=== PATIENT | male | born 1985 | race Caucasian/White ===

== ENCOUNTER 2017-06-30 08:44 | Emergency (ER) | payer SELFPAY ==
[2017-06-30] MEDS ORDERED: NORMAL SALINE 1000 ML 1,000 ML IV ONE (08:53)
[2017-06-30] MEDS ORDERED: NORMAL SALINE 1000 ML 1,000 ML IV PRN (08:53)
--- NOTE | 2017-06-30 09:03 | ER Document Report ---
ED General - General Chief Complaint: Overdose Stated Complaint: POSSIBLE OVERDOSE Time Seen by Provider: 06/30/17 08:50 Mode of Arrival: Stretcher Information source: Patient, Emergency Med Personnel Notes: HPI-31 years old male with a history of heroin abuse, uses heroin to IV, was found in the bathroom unconscious this morning by his significant other. And EMS found him on the bed and brought him with semi-conscious. There is no head injury, no complete loss of consciousness. He states that he was shooting heroin in the bathroom. Through the IV. Is partially alert but drowsy oriented to place and person. Denies any focal weakness numbness tingling sensation. Denies any headache or neck pain. Denies any pain over the chest abdomen and upper limbs or lower limbs. REVIEW OF SYSTEMS: CONSTITUTIONAL : Denies fever, chills, or sweats. Denies recent illness. EENT: Denies eye, ear, throat, or mouth pain or symptoms. Denies nasal or sinus congestion or discharge. Denies throat, tongue, or mouth swelling or difficulty swallowing. CARDIOVASCULAR: Denies chest pain. Denies palpitations or racing or irregular heart beat. Denies ankle edema. RESPIRATORY: Denies cough, cold, or chest congestion. Denies shortness of breath, difficulty breathing, or wheezing. GASTROINTESTINAL: Denies abdominal pain or distention. Denies nausea, vomiting , or diarrhea. Denies blood in vomitus, stools, or per rectum. Denies black, tarry stools. Denies constipation. GENITOURINARY: Denies difficulty urinating, painful urination, burning, frequency, blood in urine, or discharge. MUSCULOSKELETAL: Denies back or neck pain or stiffness. Denies joint pain or swelling. SKIN: Denies rash, lesions or sores. HEMATOLOGIC : Denies easy bruising or bleeding. LYMPHATIC: Denies swollen, enlarged glands. NEUROLOGICAL: Denies confusion or altered mental status. Denies passing out or loss of consciousness. Denies dizziness or lightheadedness. Denies headache. Denies weakness or paralysis or loss of use of either side. Denies problems with gait or speech. Denies sensory loss, numbness, or tingling. Denies seizures. PSYCHIATRIC: Denies anxiety or stress. Denies depression, suicidal ideation, or homicidal ideation. ALL OTHER SYSTEMS REVIEWED AND NEGATIVE. Dictation was performed using Dragon voice recognition software PHYSICAL EXAMINATION: GENERAL: Drowsy but arousable alert oriented 2 for people / place HEAD: Atraumatic, normocephalic. EYES: Pupils equal round and reactive to light, extraocular movements intact, sclera anicteric, conjunctiva are normal. ENT: Nares patent, oropharynx clear without exudates. Moist mucous membranes. NECK: Normal range of motion, supple without lymphadenopathy LUNGS: Breath sounds clear to auscultation bilaterally and equal. No wheezes rales or rhonchi. HEART: Regular rate and rhythm without murmurs ABDOMEN: Soft, nontender, nondistended abdomen. No guarding, no rebound. No masses appreciated. Musculoskeletal: Normal range of motion, no pitting or edema. No cyanosis. NEUROLOGICAL: Cranial nerves grossly intact. Normal speech, normal gait. Normal sensory, motor exams PSYCH: Normal mood, normal affect. SKIN: Warm, Dry, normal turgor, no rashes or lesions noted.HPI- - HPI Onset: Last week Severity: Moderate Pain Level: 3 Past Medical History - Social History Smoking Status: Never Smoker Family History: Reviewed & Not Pertinent Physical Exam - Vital signs Vitals: Resp Pulse Ox 17 97 06/30/17 08:52 06/30/17 08:52 Course - Re-evaluation Re-evalutation: 06/30/17 10:50 Patient was reevaluated, he fully alert and oriented 3, which to go home. Offered to go through detox program but refused. Family members around. Willing to take him home. - Vital Signs Vital signs: Temp Pulse Resp BP Pulse Ox 17 114/74 97 06/30/17 12:01 06/30/17 12:01 06/30/17 12:01 - Laboratory Result Diagrams: 06/30/17 08:28 06/30/17 08:28 Laboratory results interpreted by me: 06/30/17 06/30/17 08:28 08:28 Lymphocytes % 46.3 H Potassium 3.3 L Glucose 124 H AST 89 H ALT 164 H Discharge - Discharge Clinical Impression: Heroin abuse Disposition: HOME, SELF-CARE Instructions: Narcotic Abuse ([facility])
[2017-06-30 09:04] LABS: ABSOLUTE EOSINOPHILS # (AUTO) 0.1 10^3/uL (0.0-0.6); ABSOLUTE LYMPHOCYTES (AUTO) 3.2 10^3/uL (0.5-4.7); ABSOLUTE MONOCYTES (AUTO) 0.6 10^3/uL (0.1-1.4); ABSOLUTE NEUT (AUTO) 2.9 10^3/uL (1.7-8.2); BASOPHILS % (AUTO) 0.6 % (0-2); EOSINOPHILS % (AUTO) 2.1 % (0-6); HEMATOCRIT 46.7 % (37.9-51.0); HEMOGLOBIN 15.8 g/dL (13.5-17.0); LYMPHOCYTES % (AUTO) 46.3 % (13-45); MEAN CORPUSCULAR HEMOGLOBIN 31.7 pg (27.0-33.4); MEAN CORPUSCULAR HGB CONC 33.9 g/dL (32.0-36.0); MEAN CORPUSCULAR VOLUME 94 fl (80-97); PLATELET COUNT 277 10^3/uL (150-450); RED BLOOD COUNT 4.99 10^6/uL (4.35-5.55); RED CELL DISTRIBUTION WIDTH 13.6 % (11.5-14.0); TOTAL CELLS COUNTED % (AUTO) 100 %
[2017-06-30 09:31] LABS: ALANINE AMINOTRANSFERASE 164 U/L (21-72); ALBUMIN 4.8 g/dL (3.5-5.0); ALKALINE PHOSPHATASE 78 U/L (38-126); ANION GAP 14 (5-19); ASPARTATE AMINO TRANSFERASE 89 U/L (17-59); BILIRUBIN,DIRECT 0.2 mg/dL (0.0-0.4); BILIRUBIN,TOTAL 0.2 mg/dL (0.2-1.3); BLOOD UREA NITROGEN 12 mg/dL (7-20); CALCIUM 9.4 mg/dL (8.4-10.2); CARBON DIOXIDE 28 mmol/L (22-30); CHLORIDE 103 mmol/L (98-107); GLUCOSE 124 mg/dL (75-110); POTASSIUM 3.3 mmol/L (3.6-5.0); SODIUM 144.6 mmol/L (137-145); TOTAL PROTEIN 7.7 g/dL (6.3-8.2)
[2017-06-30] MEDS ORDERED: POTASSIUM CHLORIDE 10 MEQ TABLET.SA PO ONE (10:45)
[2017-06-30 12:15] VITALS: BP 114/74
== END 2017-06-30 12:20 | disposition home or self-care (01) ==
LOC: ER 08:44
DX: F11.10 Opioid abuse, uncomplicated (principal); R40.0 Somnolence
CPT/HCPCS: 99284; 96360; 36415; 85025; 80053; J7030

== ENCOUNTER 2017-10-03 14:16 | Emergency (ER) | payer SELFPAY ==
[2017-10-03] MEDS ORDERED: PHENYLEPHRINE HCL INJ/PF 10 MG/1 ML SDV IV ONE (14:56)
[2017-10-03] MEDS ORDERED: LIDOCAINE 2% JELLY 30 ML TUBE TOP ONE (15:04)
--- NOTE | 2017-10-03 15:26 | ER Document Report ---
ED General - General Chief Complaint: Penile Problem Stated Complaint: PROLONGED ERECTION, PENILE PAIN Time Seen by Provider: 10/03/17 14:33 Mode of Arrival: Ambulatory Information source: Patient Notes: 32-year-old male presents emergency department with complaints of priapism. Patient states that onset was at 630 this morning. Patient states that he woke up at 630 noticed erection and went back to bed. He went back to sleep for 2 hours and woke up stating that he still had an erection. Patient states that over the last 2 hours has become painful and he decided to come to the emergency department for an evaluation. Patient denies any medical problems, medications, drug use. Patient denies taking any medications for erectile dysfunction. TRAVEL OUTSIDE OF THE [place] IN LAST 30 DAYS: No - HPI Onset: This morning Onset/Duration: Sudden Quality of pain: Fullness, Pressure Severity: Mild Pain Level: Denies Associated symptoms: None Exacerbated by: Denies Relieved by: Denies Similar symptoms previously: No Recently seen / treated by doctor: No - Related Data Allergies/Adverse Reactions: No Known Allergies Allergy (Verified 10/03/17 14:28) Past Medical History - General Information source: Patient - Social History Smoking Status: Current Every Day Smoker Chew tobacco use (# tins/day): No Frequency of alcohol use: None Family History: Reviewed & Not Pertinent Patient has suicidal ideation: No Patient has homicidal ideation: No Renal/ Medical History: Denies: Hx Peritoneal Dialysis Past Surgical History: Reports: Hx Orthopedic Surgery - right wrist, left thumb , Hx Tonsillectomy Review of Systems - Review of Systems Constitutional: No symptoms reported EENT: No symptoms reported Cardiovascular: No symptoms reported Respiratory: No symptoms reported Gastrointestinal: No symptoms reported Genitourinary: No symptoms reported Male Genitourinary: Erectile dysfunction Musculoskeletal: No symptoms reported Skin: No symptoms reported Hematologic/Lymphatic: No symptoms reported Neurological/Psychological: No symptoms reported -: Yes All other systems reviewed and negative Physical Exam - Vital signs Vitals: Temp Pulse Resp BP Pulse Ox 99.0 F 85 20 131/69 H 98 10/03/17 14:20 10/03/17 14:20 10/03/17 14:20 10/03/17 14:20 10/03/17 14:20 Interpretation: Normal - Notes Notes: PHYSICAL EXAMINATION: GENERAL: Well-appearing, well-nourished and in no acute distress. HEAD: Atraumatic, normocephalic. EYES: Pupils equal round and reactive to light, extraocular movements intact, sclera anicteric, conjunctiva are normal. ENT: Nares patent, oropharynx clear without exudates. Moist mucous membranes. NECK: Normal range of motion, supple without lymphadenopathy LUNGS: Breath sounds clear to auscultation bilaterally and equal. No wheezes rales or rhonchi. HEART: Regular rate and rhythm without murmurs ABDOMEN: Soft, nontender, nondistended abdomen. No guarding, no rebound. No masses appreciated. Musculoskeletal: Normal range of motion, no pitting or edema. No cyanosis. Genital: Partially flaccid penile. No testicular tenderness to palpation. No penile discharge. NEUROLOGICAL: Cranial nerves grossly intact. Normal speech, normal gait. Normal sensory, motor exams PSYCH: Normal mood, normal affect. SKIN: Warm, Dry, normal turgor, no rashes or lesions noted. Abrasion to L hand. No signs of infection. Course - Re-evaluation Re-evalutation: 10/03/17 15:23 Discussed treatment for priapsim with the patient. He's stating that his erection is resolving. Wanted to wait before aspiration/injection of phenylephrine. After getting set up for procedure, patient says that his erection has completely resolved. Does not want treatment for priapism. Says he' s improved. Significant other at bedside. She states that his erection looks improved from earlier. I re-evaluated the penis. It is now flaccid. No erection noted. I will refer patient to the urologist technical information specialist. Patient instructed to return to the ED for recurrent symptoms. He's agreeable with the plan of care. I will start on keflex for L hand abrasion. 10/03/17 15:27 - Vital Signs Vital signs: Temp Pulse Resp BP Pulse Ox 99.0 F 85 20 131/69 H 98 10/03/17 14:20 10/03/17 14:20 10/03/17 14:20 10/03/17 14:20 10/03/17 14:20 Discharge - Discharge Clinical Impression: Priapism, Abrasion Condition: Good Disposition: HOME, SELF-CARE Instructions: Prophylactic Antibiotic ([facility]), Priapism ([facility]) Prescriptions: Cephalexin Monohydrate [Keflex 500 mg Capsule] 500 mg PO Q6H 5 Days #20 capsule Referrals: MEGAN HERNANDEZ,SIENA Koroma MD [KENNEDY CARPENTER] - Follow up as needed
--- NOTE | 2017-10-03 15:31 | ER Document Report ---
ED Medical Screen (RME) - General Chief Complaint: Penile Problem Stated Complaint: PROLONGED ERECTION, PENILE PAIN Time Seen by Provider: 10/03/17 14:33 Notes: 32 year old male presents with complaints of prolonged erection beginning this morning upon awakening. Patient denies any sex injury or trauma. Patient denies taking any medications to cause an erection. I have greeted and performed a rapid initial assessment of this patient. A comprehensive ED assessment and evaluation of the patient, analysis of test results, and completion of the medical decision making process will be conducted by additional ED providers. Review of systems: Constitutional: No symptoms reported EENT: No symptoms reported Cardiovascular: No symptoms reported Respiratory: No symptoms reported Gastrointestinal: No symptoms reported Genitourinary: Painful erection. Musculoskeletal: No symptoms reported Skin: No symptoms reported Hematologic/Lymphatic: No symptoms reported Neurological/Psychological: No symptoms reported Yes All other systems reviewed and negative Physical Exam: General: Alert, appears well. HEENT: Normocephalic. Atraumatic. PERRLA. Extraocular movements intact. Oropharynx clear. Neck: Supple. Respiratory: No respiratory distress. Abdominal: Normal Inspection. No distension. Extremities: Moves all four extremities. Neurological: Normal cognition. AAOx4. Normal speech. Psychological: Normal affect. Normal Mood. Skin: Warm. Dry. Normal color. TRAVEL OUTSIDE OF THE U.S[place] IN LAST 30 DAYS: No - Related Data Allergies/Adverse Reactions: No Known Allergies Allergy (Verified 10/03/17 14:28) Past Medical History - Social History Chew tobacco use (# tins/day): No Frequency of alcohol use: None Renal/ Medical History: Denies: Hx Peritoneal Dialysis Past Surgical History: Reports: Hx Orthopedic Surgery - right wrist, left thumb , Hx Tonsillectomy Physical Exam - Vital signs Vitals: Temp Pulse Resp BP Pulse Ox 99.0 F 85 20 131/69 H 98 10/03/17 14:20 10/03/17 14:20 10/03/17 14:20 10/03/17 14:20 10/03/17 14:20 Course - Vital Signs Vital signs: Temp Pulse Resp BP Pulse Ox 99.0 F 85 20 131/69 H 98 10/03/17 14:20 10/03/17 14:20 10/03/17 14:20 10/03/17 14:20 10/03/17 14:20
[2017-10-03 15:40] VITALS: BP 124/74
== END 2017-10-03 15:40 | disposition home or self-care (01) ==
LOC: ER 14:16
DX: N48.30 Priapism, unspecified (principal); S60.512A Abrasion of left hand, initial encounter; X58.XXXA Exposure to other specified factors, initial encounter; F17.200 Nicotine dependence, unspecified, uncomplicated
CPT/HCPCS: 99283; J2370

== ENCOUNTER 2018-07-11 05:43 | Emergency (ER) | payer SELFPAY ==
[2018-07-11 05:51] VITALS: BP 173/102
[2018-07-11] MEDS ORDERED: LIDOCAINE 1% INJ (10 MG/ML) 10 ML MDV INJ ONE (06:09)
[2018-07-11] MEDS ORDERED: BUPIVACAINE HCL 0.5%-EPI 1:200000 INJ/PF 30 ML VIAL INJ ONE (06:10)
[2018-07-11] MEDS ORDERED: AMOXICILLIN TRIHYDRATE 500 MG CAPSULE PO ONE (06:10)
[2018-07-11] MEDS ORDERED: KETOROLAC TROMETHAMINE 60 MG/2 ML SDV IM ONE (06:11)
--- NOTE | 2018-07-11 06:11 | ER Document Report ---
ED General - General Chief Complaint: Toothache Stated Complaint: TOOTHACHE Time Seen by Provider: 07/11/18 06:03 Notes: Patient is a 32-year-old male that presents to the emergency department for chief complaint of tooth pain. Patient states that he started having pain in his left lower molar about 2 days ago, the pain is been progressively worse, is unable to get any sleep, he is noticed some swelling to on that side. He denies any any fevers, chills, night sweats, nausea or vomiting. He currently rates his pain as a 10 out of 10 describes it as a constant aching sensation that is not improving. He has had issues with his teeth in the past. He does not have a dentist with a plan on seeing a dentist tomorrow at the [facility]. He does report that he tried to pull his own tooth with pliers and ended up fracturing it at home yesterday. Past Medical History: Denies chronic medical conditions Past Surgical History: Tonsillectomy, hand surgery Social History: Admits to smoking cigarettes daily, denies alcohol or drug use Family History: Reviewed and noncontributory for presenting illness Allergies: Reviewed, see documented allergy list. REVIEW OF SYSTEMS: Other than noted above, the 12 point review of systems was reviewed with the patient and were negative, all pertinent findings are included in the HPI. PHYSICAL EXAMINATION: Vital signs reviewed, nursing noted reviewed. GENERAL: Well-appearing, well-nourished but does appear uncomfortable HEAD: Atraumatic, normocephalic. EYES: Eyes appear normal, sclera anicteric, conjunctiva are normal. ENT: Moist mucous membranes. Poor dentition overall, multiple dental caries, and most noted is fractured tooth #17, with exposed nerve root, with associated gingival inflammation, and tenderness to palpation with tongue blade, no discrete dental abscesses appreciated. NECK: Normal range of motion, supple without lymphadenopathy LUNGS: Breath sounds clear to auscultation bilaterally and equal. No wheezes rales or rhonchi. HEART: Regular rate and rhythm without murmurs EXTREMITIES: Nontender, good range of motion, no pitting or edema. NEUROLOGICAL: No focal neurological deficits. Moves all extremities spontaneously Motor and sensory grossly intact on exam. PSYCH: Normal mood, normal affect. SKIN: Warm, Dry, normal turgor, no rashes or lesions noted on exposed skin TRAVEL OUTSIDE OF THE [place] IN LAST 30 DAYS: No - Related Data Allergies/Adverse Reactions: No Known Allergies Allergy (Verified 07/11/18 05:48) Past Medical History - Social History Smoking Status: Never Smoker Chew tobacco use (# tins/day): No Frequency of alcohol use: None Drug Abuse: None Family History: Reviewed & Not Pertinent Patient has suicidal ideation: No Patient has homicidal ideation: No Renal/ Medical History: Denies: Hx Peritoneal Dialysis Past Surgical History: Reports: Hx Orthopedic Surgery - right wrist, left thumb, Hx Tonsillectomy Physical Exam - Vital signs Vitals: Temp Pulse Resp BP Pulse Ox 97.4 F 79 24 H 173/102 H 96 07/11/18 05:48 07/11/18 05:48 07/11/18 05:48 07/11/18 05:48 07/11/18 05:48 Course - Re-evaluation Re-evalutation: Patient seen and examined vital signs reviewed. Patient was evaluated and treated as appropriate for the patient's presenting symptoms and complaint, with consideration of any critical or life threatening conditions that may be associated with their obtained history and exam as noted above. Patient was treated with IM Toradol, amoxicillin, and inferior alveolar nerve block. PROCEDURE: Left inferior alveolar nerve block was performed. Risks and benefits explained to the patient. A mixture of 1% lidocaine, and 0.5% bupivacaine with epinephrine, were injected into the trigone space, on the left, approximately 3 mL's of solution was instilled. Patient had complete relief of his pain, and tolerated the procedure well. The patient was re-evaluated and was stable and much improved Evaluation was most consistent with dental infection, and tooth pain Plan of care was discussed with the patient at this point, after careful consideration I feel that that patient can be discharged from the emergency department, the patient was educated treatments and reasons to return to the emergency department based on their presumed diagnosis as noted above, they were advised to followup with a primary care physician in 2-3 days. Patient was agreeable to plan of care. *Note is created using voice recognition software and may contain spelling, syntax or grammatical errors. - Vital Signs Vital signs: Temp Pulse Resp BP Pulse Ox 97.4 F 79 24 H 173/102 H 96 07/11/18 05:48 07/11/18 05:48 07/11/18 05:48 07/11/18 05:48 07/11/18 05:48 Discharge - Discharge Clinical Impression: Dental infection Condition: Stable Disposition: HOME, SELF-CARE Instructions: Dental Infection or Abscess ([facility]) Additional Instructions: Please follow-up with the dentist tomorrow, below is a list of all the dental clinics in the area. Below is a list of dental clinics in the area. [facility] [address] [place], [place] [phone] [facility] [address] [place] [address] [facility] [address] [facility] [address] [facility] [address] [email or web address] [address] [place] [address] Thursday- 8:00am to 5:00 pm Will see patients from other [facility]. Charges based on income and family size and accepts Medicare, Medicaid, and Insurances Will pull molars [facility] Student [facility] [address] Hours of Operation 8:00 am - 4:30 pm weekdays The following dental offices accept Medicaid: [facility] [address]. [address] Dr. Ochoa Yoav Allison Lutsavage, and [facility] Dr. Gayle ([place]) Dr. Rodriguez ([place]) [facility] Drs. Grajeda and Joe ([place]) Dr. Vera ([place]) [facility] Dr. Hill ([place]) Drs. Lane and ([place]) Medicaid Care Line Prescriptions: Amoxicillin Trihydrate [Amoxil 875 mg Tablet] 1 tab PO BID #14 tablet
== END 2018-07-11 07:12 | disposition home or self-care (01) ==
LOC: ER 05:43
DX: K04.7 Periapical abscess without sinus (principal); K08.89 Other specified disorders of teeth and supporting structures; F17.210 Nicotine dependence, cigarettes, uncomplicated
CPT/HCPCS: 99282; 96372; J3490; J1885

== ENCOUNTER 2018-11-24 13:07 | Emergency (ER) | payer OTHER ==
[2018-11-24] MEDS ORDERED: ONDANSETRON HCL INJ/PF 4 MG/2 ML SDV IV ONE (14:11)
--- NOTE | 2018-11-24 14:14 | ER Document Report ---
ED Medical Screen (RME) - General Chief Complaint: Nausea/Vomiting Stated Complaint: ABDOMINAL PAINS TRAVEL OUTSIDE OF THE U.S. IN LAST 30 DAYS: No - HPI Notes: 11/24/18 14:14 Patient is a 33-year-old male no significant past medical history who presents complaining of nausea, vomiting, muscle cramping, abdominal soreness that began yesterday, but worsened today. 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 He was unable to keep water down today so he came to the emergency department for evaluation. Denies MEZA, fever, neck pain, URI, CP, SOB, dysuria, back pain, or rash. I have treated and performed a rapid initial assessment of this patient. A comprehensive ED assessment and evaluation of the patient, analysis of test results and completion of medical decision making process will be conducted by additional ED providers. PHYSICAL EXAMINATION: GENERAL: Well-appearing, well-nourished and in no acute distress. A&Ox4. Answers questions appropriately. LUNGS: Breath sounds clear to auscultation bilaterally and equal. No wheezes rales or rhonchi. HEART: Regular rate and rhythm without murmurs, rubs, gallops. ABDOMEN: Soft, nondistended abdomen. No guarding, no rebound. Normal bowel sounds present. No CVA tenderness bilaterally. Grossly nontender (cannot elicit thorough abd exam w/o bed, however). - Related Data Allergies/Adverse Reactions: No Known Allergies Allergy (Verified 11/24/18 13:10) Past Medical History Renal/ Medical History: Denies: Hx Peritoneal Dialysis Past Surgical History: Reports: Hx Orthopedic Surgery - right wrist, left thumb, Hx Tonsillectomy Physical Exam - Vital signs Vitals: Temp Pulse Resp BP Pulse Ox 97.5 F 99 24 H 122/88 H 95 11/24/18 13:30 11/24/18 13:30 11/24/18 13:30 11/24/18 13:30 11/24/18 13:30 Course - Vital Signs Vital signs: Temp Pulse Resp BP Pulse Ox 97.5 F 99 24 H 122/88 H 95 11/24/18 13:30 11/24/18 13:30 11/24/18 13:30 11/24/18 13:30 11/24/18 13:30
[2018-11-24] MEDS: NORMAL SALINE 1000 ML 1,000 ML IV PRN ×2 (14:33→14:34)
[2018-11-24 14:35] LABS: ABSOLUTE BASOPHILS # (AUTO) 0.1 10^3/uL (0.0-0.2); ABSOLUTE EOSINOPHILS # (AUTO) 0.3 10^3/uL (0.0-0.6); ABSOLUTE LYMPHOCYTES (AUTO) 2.3 10^3/uL (0.5-4.7); ABSOLUTE MONOCYTES (AUTO) 0.9 10^3/uL (0.1-1.4); ABSOLUTE NEUT (AUTO) 3.4 10^3/uL (1.7-8.2); BASOPHILS % (AUTO) 1.3 % (0-2); EOSINOPHILS % (AUTO) 4.9 % (0-6); HEMATOCRIT 46.9 % (37.9-51.0); HEMOGLOBIN 16.2 g/dL (13.5-17.0); LYMPHOCYTES % (AUTO) 33.3 % (13-45); MEAN CORPUSCULAR HEMOGLOBIN 31.7 pg (27.0-33.4); MEAN CORPUSCULAR HGB CONC 34.5 g/dL (32.0-36.0); MEAN CORPUSCULAR VOLUME 92 fl (80-97); MONOCYTES % (AUTO) 12.3 % (3-13); PLATELET COUNT 281 10^3/uL (150-450); RED CELL DISTRIBUTION WIDTH 13.9 % (11.5-14.0); SEGMENTED NEUTROPHILS % (AUTO) 48.2 % (42-78); TOTAL CELLS COUNTED % (AUTO) 100 %; WHITE BLOOD COUNT 6.9 10^3/uL (4.0-10.5)
[2018-11-24 14:51] LABS: APPEARANCE,URINE CLEAR; BILIRUBIN,URINE NEGATIVE (NEGATIVE); COLOR,URINE YELLOW; GLUCOSE, URINE NEGATIVE (NEGATIVE); KETONES,URINE NEGATIVE (NEGATIVE); LEUKOCYTE ESTERASE,URINE NEGATIVE (NEGATIVE); NITRITE,URINE NEGATIVE (NEGATIVE); PROTEIN,URINE NEGATIVE (NEGATIVE); URINE SPECIFIC GRAVITY 1.024; UROBILINOGEN,URINE NEGATIVE mg/dL (<2.0)
[2018-11-24 15:01] LABS: ALKALINE PHOSPHATASE 80 U/L (38-126); ANION GAP 12 (5-19); ASPARTATE AMINO TRANSFERASE 94 U/L (17-59); BILIRUBIN,DIRECT 0.2 mg/dL (0.0-0.4); BILIRUBIN,TOTAL 0.4 mg/dL (0.2-1.3); BLOOD UREA NITROGEN 33 mg/dL (7-20); CALCIUM 10.3 mg/dL (8.4-10.2); CARBON DIOXIDE 28 mmol/L (22-30); CHLORIDE 97 mmol/L (98-107); CREATINE KINASE 217 U/L (55-170); GLUCOSE 106 mg/dL (75-110); POTASSIUM 4.8 mmol/L (3.6-5.0); TOTAL PROTEIN 8.2 g/dL (6.3-8.2)
[2018-11-24] MEDS ORDERED: FAMOTIDINE INJ/PF 20 MG/2 ML SDV IV ONE ×2 (16:26→16:41)
[2018-11-24] MEDS ORDERED: KETOROLAC TROMETHAMINE INJ/PF 30 MG/1 ML SDV IV ONE (16:26)
--- NOTE | 2018-11-24 16:37 | ER Document Report ---
ED General - General Chief Complaint: Nausea/Vomiting Stated Complaint: ABDOMINAL PAINS Time Seen by Provider: 11/24/18 15:57 TRAVEL OUTSIDE OF THE [place] IN LAST 30 DAYS: No - HPI Notes: Patient is a 33-year-old male who presents the emergency department for evaluation. 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 He all of a sudden became nauseated. He had multiple episodes of nonbloody, nonbilious emesis. He states he has had abdominal cramping, muscle cramping, and pain that radiates up into his chest since then. He was not really able to keep any fluids down today so he presents to the emergency department for evaluation. No fevers to his knowledge. He is still urinating. Scribes his pain is a cramping and a soreness, nothing seems to make it better or worse. - Related Data Allergies/Adverse Reactions: No Known Allergies Allergy (Verified 11/24/18 13:10) Past Medical History - General Information source: Patient - Social History Smoking Status: Current Every Day Smoker Chew tobacco use (# tins/day): No Frequency of alcohol use: Social Drug Abuse: Marijuana Family History: Reviewed & Not Pertinent Patient has suicidal ideation: No Patient has homicidal ideation: No Renal/ Medical History: Denies: Hx Peritoneal Dialysis Past Surgical History: Reports: Hx Orthopedic Surgery - right wrist, left thumb, Hx Tonsillectomy Review of Systems - Review of Systems Constitutional: See HPI EENT: No symptoms reported Cardiovascular: No symptoms reported Respiratory: No symptoms reported Gastrointestinal: See HPI Genitourinary: No symptoms reported Musculoskeletal: See HPI Skin: No symptoms reported Neurological/Psychological: No symptoms reported Physical Exam - Vital signs Vitals: Temp Pulse Resp BP Pulse Ox 97.5 F 99 24 H 122/88 H 95 11/24/18 13:30 11/24/18 13:30 11/24/18 13:30 11/24/18 13:30 11/24/18 13:30 - Notes Notes: Vital signs reviewed, please refer to chart. Head is normocephalic, atraumatic. Pupils equal round, reactive to light. Neck is supple without meningismus. Heart is regular rate and rhythm. Lungs are clear to auscultation bilaterally. Chest wall is tender to palpation throughout. Abdomen is soft, globally tender without rebound or guarding, normoactive bowel sounds throughout. Extremities without cyanosis, clubbing. Posterior calves are nontender. Peripheral pulses are equal. Skin is warm and dry. Patient is awake, alert, neurological exam is nonfocal. Course - Re-evaluation Re-evalutation: 11/24/18 16:36 Patient presents emergency department for evaluation. He was initially evaluated through triage, had laboratory investigations, Zofran, IV fluids ordered. He has some improvement but continues to complain of pain. He was administered Toradol and pepcid. We will continue to monitor. 11/24/18 18:02 Patient remained stable. Despite a review of his medical history revealing heroin abuse, and a urine drug screen being positive for marijuana, benzodiazepines, and methamphetamines, patient denies drug use. At this point I do not feel comfortable giving any sort of narcotic medication to this patient. I do believe he was treated adequately for his pain and symptoms with Pepcid, Toradol. He has no significant electrolyte abnormalities. He was only mildly dehydrated and given 2 L of IV fluid. He has had no further emesis here. I will send him home with Zen and close follow-up. - Vital Signs Vital signs: Temp Pulse Resp BP Pulse Ox 97.5 F 99 24 H 122/88 H 95 11/24/18 13:30 11/24/18 13:30 11/24/18 13:30 11/24/18 13:30 11/24/18 13:30 - Laboratory Result Diagrams: 11/24/18 14:15 11/24/18 14:15 Laboratory results interpreted by me: 11/24/18 11/24/18 14:15 14:15 Chloride 97 L BUN 33 H Calcium 10.3 H AST 94 H Creatine Kinase 217 H Urine Blood MODERATE H Discharge - Discharge Clinical Impression: Nausea & vomiting, Abdominal wall pain, Chest wall pain Condition: Stable Disposition: HOME, SELF-CARE Instructions: Abdominal Pain ([facility]), Antinausea Medication ([facility]), Intravenous (IV) Fluids ([facility]) Additional Instructions: Stay hydrated with small, frequent sips of fluid. Follow-up with primary care this week. Return to the emergency department with worsening or new concerning symptoms of any sort.
[2018-11-24] MEDS ORDERED: KETOROLAC TROMETHAMINE INJ/PF 30 MG/1 ML SDV ONE (16:40)
[2018-11-24 16:46] LABS: URINE AMPHETAMINES SCREEN UNCONFIRMED POSITIVE; URINE BARBITURATES SCREEN NEGATIVE; URINE BENZODIAZEPINES SCREEN UNCONFIRMED POSITIVE; URINE COCAINE SCREEN NEGATIVE; URINE MARIJUANA (THC) SCREEN UNCONFIRMED POSITIVE; URINE METHADONE SCREEN NEGATIVE; URINE PHENCYCLIDINE SCREEN NEGATIVE
[2018-11-24 18:29] VITALS: BP 144/89
== END 2018-11-24 18:28 | disposition home or self-care (01) ==
LOC: EDBD → ER 13:07
DX: R11.2 Nausea with vomiting, unspecified (principal); R10.9 Unspecified abdominal pain; R07.89 Other chest pain; F17.200 Nicotine dependence, unspecified, uncomplicated; F12.10 Cannabis abuse, uncomplicated; E86.0 Dehydration
CPT/HCPCS: 36415; 82550; 83690; 85025; 80053; 81001; 80307; J1885; J2405; J7030; S0028; 96361; 96374; 96375; 99284